=== PATIENT | male | born 1995 ===

== ENCOUNTER 2024-01-05 12:42 | Outpatient (CLI) | payer BC, SELFPAY ==
--- NOTE | 2024-01-05 12:50 | XRR_ITS ---
PROCEDURE INFORMATION: Exam: XR Right Ankle Exam date and time: 01/05/2024 11:45 AM Age: 28 years old Clinical indication: Injury or trauma; Other: Rolled ankle; Sprain or strain; Right; Injury date: 6 months ago; Additional info: Pain of right ankle TECHNIQUE: Imaging protocol: Radiologic exam of the right ankle. Views: 3 or more views. COMPARISON: No relevant prior studies available. FINDINGS: Bones/joints: Normal. No acute osseous, joint, or soft tissue abnormality. Soft tissues: Normal. XR/XR ankle RT min 3V* [id number] IMPRESSION: No acute findings.
== END 2024-01-05 12:43 | disposition home or self-care (01) ==
LOC: RADOUTREAD 12:48
PROVIDERS: Visit Provider Nurse Practitioner Family
DX: M25.571 Pain in right ankle and joints of right foot (principal)